=== PATIENT | male | born 2000 | race Two or more races ===

== ENCOUNTER 2020-03-08 20:17 | Emergency (ER) | payer OTHER ==
[~2020-03-08] VITALS: Ht 177.8 cm; Wt 75.9 kg
[2020-03-08 20:54] VITALS: BP 92/57
--- NOTE | 2020-03-08 22:38 | NUR ---
PER RADIOLOGY, XRAY WAITITNG TO BE READ.
--- NOTE | 2020-03-08 22:58 | NUR ---
REPORT GIVEN TO SHAHLA MAR.
--- NOTE | 2020-03-08 23:00 | NUR ---
Report received from ISABELA Bowens. This RN to assume care.
[2020-03-08] MEDS ORDERED: NEOSPORIN OINT. PKT 1 PACKET ONE (23:18)
--- NOTE | 2020-03-08 23:34 | NUR ---
TASK RN: DC EDUCATION PROVIDED, PT DEMONSTRATES UNDERSTANDING. PT AMBULATED STEADILY TO DC WITH RN.
== END 2020-03-08 23:36 | disposition home or self-care (01) ==
LOC: ED 20:47
DX: S61.031A Puncture wound without foreign body of right thumb without damage to nail, initial encounter (principal); X58.XXXA Exposure to other specified factors, initial encounter; Y93.89 Activity, other specified; Y92.69 Other specified industrial and construction area as the place of occurrence of the external cause; Y99.0 Civilian activity done for income or pay
CPT/HCPCS: 99283